=== PATIENT | female | born 1990 | race Caucasian/White ===

== ENCOUNTER 2017-10-15 22:53 | Emergency (ER) | payer OTHER, BC ==
[2017-10-16] MEDS: KETOROLAC 15 MG INJ IM (01:07)
== END 2017-10-16 03:46 | disposition home or self-care (01) ==
LOC: FTE 22:53
DX: S01.81XA Laceration without foreign body of other part of head, initial encounter (principal); R40.2412 Glasgow coma scale score 13-15, at arrival to emergency department; V49.40XA Driver injured in collision with unspecified motor vehicles in traffic accident, initial encounter
CPT/HCPCS: 12013; 73030; 81025; 96372; 99284-25